=== PATIENT | female | born 1955 | race Two or more races ===

== ENCOUNTER 2018-01-23 19:42 | Inpatient (IN) | payer BC ==
[2018-01-23] MEDS ORDERED: HEPARIN SO1000 UNIT/ IV (23:30)
[2018-01-23] MEDS ORDERED: EPOGEN4000 U/ML SC (23:31)
[2018-01-24] VITALS: BP 250/87
[2018-01-24 00:35] LABS: BASOPHILS 0.4 % (0-2); EOSINOPHILS 0.9 % (0-7); HEMATOCRIT 25.2 % (36.0-48.0); HEMOGLOBIN 8.3 g/dL (12-16); IMMATURE GRANULOCYTES 0.2 % (0-5); LYMPHOCYTES 18.3 % (15-50); MCH 31.6 pg (26.0-34.0); MCHC 32.9 g/dL (31.0-37.0); MCV 95.8 fL (80.0-100.0); MEAN PLATELET VOLUME 10.7 fL (7.4-10.4); MONOCYTES 8.5 % (2-11); NEUTROPHILS 71.7 % (40-80); PLATELET COUNT 136 10x3/uL (130-400); RBC 2.63 10x6/uL (4.00-5.40); RDW 12.6 % (11.5-14.5); WBC 5.6 10x3/uL (4.8-10.8)
[2018-01-24 00:46] LABS: ALBUMIN 3.5 g/dL (3.4-5.0); ANION GAP 22.4 mmol/L (8-16); BILIRUBIN - TOTAL 0.4 mg/dL (0.2-1.3); CALCIUM 7.9 mg/dL (8.5-10.1); CARBON DIOXIDE 20.5 mmol/L (21.0-32.0); CREATININE - SERUM 11.5 mg/dL (0.6-1.3); PHOSPHOROUS 5.9 mg/dL (2.5-4.9); PROTEIN - SERUM 7.5 g/dL (6.4-8.2)
[2018-01-24 00:47] LABS: MAGNESIUM - SERUM 3.5 mg/dL (1.8-2.4)
[2018-01-24 00:48] LABS: POTASSIUM - SERUM 6.9 mmol/L (3.5-5.1)
[2018-01-24 04:00] VITALS: BP 199/74
[2018-01-24 06:10] LABS: BASOPHILS 0.2 % (0-2); EOSINOPHILS 1.3 % (0-7); HEMATOCRIT 26.6 % (36.0-48.0); IMMATURE GRANULOCYTES 0.2 % (0-5); LYMPHOCYTES 17.5 % (15-50); MCHC 33.8 g/dL (31.0-37.0); MCV 94.7 fL (80.0-100.0); MEAN PLATELET VOLUME 10.8 fL (7.4-10.4); MONOCYTES 7.4 % (2-11); NEUTROPHILS 73.4 % (40-80); PLATELET COUNT 156 10x3/uL (130-400); RBC 2.81 10x6/uL (4.00-5.40); RDW 12.5 % (11.5-14.5); WBC 4.8 10x3/uL (4.8-10.8)
[2018-01-24 06:24] LABS: ALBUMIN 3.8 g/dL (3.4-5.0); ANION GAP 21.2 mmol/L (8-16); BILIRUBIN - TOTAL 0.47 mg/dL (0.2-1.3); CALCIUM 8.5 mg/dL (8.5-10.1); CARBON DIOXIDE 22.3 mmol/L (21.0-32.0); MAGNESIUM - SERUM 2.8 mg/dL (1.8-2.4)
[2018-01-24 06:26] LABS: CREATININE - SERUM 5.7 mg/dL (0.6-1.3); PHOSPHOROUS 3.2 mg/dL (2.5-4.9); POTASSIUM - SERUM 3.5 mmol/L (3.5-5.1)
[2018-01-24 08:07] VITALS: BP 213/77
[2018-01-24 10:46] VITALS: BP 161/64
[2018-01-24 11:18] LABS: % SATURATION 107 % (15-55); IRON 207 ug/dl (35-150); TOTAL IRON BIND CAPACITY 193 ug/dl (260-445)
[2018-01-24 15:33] VITALS: BP 176/68
[2018-01-24 19:59] VITALS: BP 184/55
[2018-01-25] VITALS (8 sets, daily range): BP systolic 114–231; BP diastolic 45–76
[2018-01-25 05:50] LABS: BASOPHILS 0.4 % (0-2); EOSINOPHILS 1.5 % (0-7); HEMATOCRIT 26.3 % (36.0-48.0); HEMOGLOBIN 8.8 g/dL (12-16); LYMPHOCYTES 33.1 % (15-50); MCH 32.1 pg (26.0-34.0); MCHC 33.5 g/dL (31.0-37.0); MEAN PLATELET VOLUME 10.5 fL (7.4-10.4); MONOCYTES 10.8 % (2-11); NEUTROPHILS 54.2 % (40-80); PLATELET COUNT 147 10x3/uL (130-400); RBC 2.74 10x6/uL (4.00-5.40); RDW 12.7 % (11.5-14.5); WBC 4.7 10x3/uL (4.8-10.8)
[2018-01-25 06:19] LABS: ALBUMIN 3.4 g/dL (3.4-5.0); ANION GAP 22.6 mmol/L (8-16); BILIRUBIN - TOTAL 0.5 mg/dL (0.2-1.3); CALCIUM 8.1 mg/dL (8.5-10.1); CARBON DIOXIDE 20.8 mmol/L (21.0-32.0); PROTEIN - SERUM 7.4 g/dL (6.4-8.2)
[2018-01-25 06:20] LABS: CREATININE - SERUM 8.3 mg/dL (0.6-1.3); PHOSPHOROUS 5.7 mg/dL (2.5-4.9); POTASSIUM - SERUM 4.4 mmol/L (3.5-5.1)
[2018-01-25 08:22] LABS: FOLATE (FOLIC ACID) - SERUM 18.4 ng/mL (>3.0)
[2018-01-26 01:28] VITALS: BP 160/57
[2018-01-26 05:36] VITALS: BP 222/87
[2018-01-26 06:30] LABS: BASOPHILS 0.4 % (0-2); EOSINOPHILS 1.6 % (0-7); HEMATOCRIT 26.7 % (36.0-48.0); HEMOGLOBIN 8.9 g/dL (12-16); LYMPHOCYTES 27.5 % (15-50); MCHC 33.3 g/dL (31.0-37.0); MEAN PLATELET VOLUME 11.3 fL (7.4-10.4); MONOCYTES 14.1 % (2-11); NEUTROPHILS 56.4 % (40-80); PLATELET COUNT 158 10x3/uL (130-400); RBC 2.78 10x6/uL (4.00-5.40); RDW 12.5 % (11.5-14.5)
[2018-01-26 06:53] LABS: ALBUMIN 3.6 g/dL (3.4-5.0); ANION GAP 21.7 mmol/L (8-16); BILIRUBIN - TOTAL 0.41 mg/dL (0.2-1.3); CALCIUM 8.1 mg/dL (8.5-10.1); CARBON DIOXIDE 21.7 mmol/L (21.0-32.0); CREATININE - SERUM 9.9 mg/dL (0.6-1.3); MAGNESIUM - SERUM 3.1 mg/dL (1.8-2.4); POTASSIUM - SERUM 4.4 mmol/L (3.5-5.1); PROTEIN - SERUM 7.6 g/dL (6.4-8.2)
[2018-01-26 08:36] VITALS: BP 116/68
[2018-01-26 11:52] VITALS: BP 135/63
[2018-01-26 15:39] VITALS: BP 221/84
[2018-01-26 20:37] VITALS: BP 126/55
[2018-01-27 00:46] VITALS: BP 187/70
[2018-01-27 05:50] VITALS: BP 152/58
[2018-01-27 06:30] LABS: BASOPHILS 0.3 % (0-2); EOSINOPHILS 1.1 % (0-7); HEMATOCRIT 27.5 % (36.0-48.0); HEMOGLOBIN 9.2 g/dL (12-16); IMMATURE GRANULOCYTES 0.3 % (0-5); LYMPHOCYTES 22.1 % (15-50); MCH 32.5 pg (26.0-34.0); MCHC 33.5 g/dL (31.0-37.0); MCV 97.2 fL (80.0-100.0); MEAN PLATELET VOLUME 11.2 fL (7.4-10.4); MONOCYTES 15.3 % (2-11); NEUTROPHILS 60.9 % (40-80); PLATELET COUNT 149 10x3/uL (130-400); RBC 2.83 10x6/uL (4.00-5.40); RDW 12.5 % (11.5-14.5); WBC 3.8 10x3/uL (4.8-10.8)
[2018-01-27 07:07] LABS: ALBUMIN 3.5 g/dL (3.4-5.0); BILIRUBIN - TOTAL 0.4 mg/dL (0.2-1.3); CALCIUM 8.2 mg/dL (8.5-10.1); MAGNESIUM - SERUM 2.4 mg/dL (1.8-2.4); PHOSPHOROUS 4.8 mg/dL (2.5-4.9); PROTEIN - SERUM 7.7 g/dL (6.4-8.2)
[2018-01-27 07:10] LABS: CARBON DIOXIDE 27.7 mmol/L (21.0-32.0); CREATININE - SERUM 5.8 mg/dL (0.6-1.3); POTASSIUM - SERUM 3.7 mmol/L (3.5-5.1)
[2018-01-27 07:55] VITALS: BP 174/59
[2018-01-27 09:18] LABS: HEPATITIS C ANTIBODY <0.1 (0.0-0.9)
[2018-01-27 11:37] VITALS: BP 195/71
[2018-01-27 15:35] VITALS: BP 180/69
[2018-01-27 19:00] VITALS: BP 180/57
[2018-01-28] VITALS: BP 152/47
[2018-01-28 04:00] VITALS: BP 203/66
[2018-01-28 07:05] LABS: BASOPHILS 0.2 % (0-2); EOSINOPHILS 0.6 % (0-7); HEMATOCRIT 24.7 % (36.0-48.0); HEMOGLOBIN 8.2 g/dL (12-16); IMMATURE GRANULOCYTES 0.2 % (0-5); LYMPHOCYTES 22.2 % (15-50); MCH 32.3 pg (26.0-34.0); MCHC 33.2 g/dL (31.0-37.0); MCV 97.2 fL (80.0-100.0); MEAN PLATELET VOLUME 10.9 fL (7.4-10.4); MONOCYTES 9.6 % (2-11); NEUTROPHILS 67.2 % (40-80); PLATELET COUNT 130 10x3/uL (130-400); RBC 2.54 10x6/uL (4.00-5.40); RDW 12.8 % (11.5-14.5)
[2018-01-28 07:13] LABS: WBC 5.3 10x3/uL (4.8-10.8)
[2018-01-28 07:37] LABS: ALBUMIN 3.4 g/dL (3.4-5.0); ANION GAP 17.3 mmol/L (8-16); BILIRUBIN - TOTAL 0.38 mg/dL (0.2-1.3); CALCIUM 7.5 mg/dL (8.5-10.1); CARBON DIOXIDE 25.3 mmol/L (21.0-32.0); MAGNESIUM - SERUM 2.5 mg/dL (1.8-2.4); POTASSIUM - SERUM 3.6 mmol/L (3.5-5.1); PROTEIN - SERUM 7.3 g/dL (6.4-8.2)
[2018-01-28 07:41] LABS: PHOSPHOROUS 6.3 mg/dL (2.5-4.9)
[2018-01-28 07:42] LABS: CREATININE - SERUM 7.8 mg/dL (0.6-1.3)
[2018-01-28 08:52] VITALS: BP 192/69
[2018-01-28 16:21] VITALS: BP 199/83
[2018-03-02] MEDS ORDERED: HYDRALAZINE HCL10 MG PO (15:23)
[2018-03-02] MEDS ORDERED: FOLATE0.4 MG PO (15:24)
[2018-03-02] MEDS ORDERED: FUROSEMIDE40 MG PO (15:24)
[2018-03-02] MEDS ORDERED: SENNA8.6 MG PO (15:26)
[2018-03-02] MEDS ORDERED: VITAMIN B COMPL1 TAB PO (15:26)
[2018-03-02] MEDS ORDERED: COZAAR50 MG PO (15:26)
[2018-03-02] MEDS ORDERED: OMEPRAZOLE40 MG PO (15:26)
== END 2018-01-28 17:01 | disposition home or self-care (01) | DRG 682 ==
LOC: D.M2 19:42
PROVIDERS: Family Medicine; Internal Medicine Nephrology
PROC: 5A1D70Z Performance of Urinary Filtration, Intermittent, Less than 6 Hours Per Day (ICD-10-PCS; principal; 2018-01-26)
DX: I12.0 Hypertensive chronic kidney disease with stage 5 chronic kidney disease or end stage renal disease (principal); N18.6 End stage renal disease; E11.22 Type 2 diabetes mellitus with diabetic chronic kidney disease; Z99.2 Dependence on renal dialysis; Z89.612 Acquired absence of left leg above knee; D63.1 Anemia in chronic kidney disease

== ENCOUNTER 2018-03-03 06:17 | Observation (INO) | payer BC ==
[2018-03-02 16:13] LABS: BASOPHILS 0.2 % (0-2); EOSINOPHILS 1.6 % (0-7); HEMATOCRIT 32.9 % (36.0-48.0); IMMATURE GRANULOCYTES 0.2 % (0-5); LYMPHOCYTES 22.3 % (15-50); MCH 32.2 pg (26.0-34.0); MCHC 33.4 g/dL (31.0-37.0); MCV 96.2 fL (80.0-100.0); MEAN PLATELET VOLUME 10.4 fL (7.4-10.4); MONOCYTES 8.2 % (2-11); NEUTROPHILS 67.5 % (40-80); RBC 3.42 10x6/uL (4.00-5.40); RDW 13.1 % (11.5-14.5); WBC 5.6 10x3/uL (4.8-10.8)
[2018-03-02 16:15] LABS: PLATELET COUNT 160 10x3/uL (130-400)
[2018-03-02 16:33] LABS: ANION GAP 14.2 mmol/L (8-16); CALCIUM 9.3 mg/dL (8.5-10.1); CARBON DIOXIDE 30.7 mmol/L (21.0-32.0); CREATININE - SERUM 2.6 mg/dL (0.6-1.3); POTASSIUM - SERUM 3.9 mmol/L (3.5-5.1)
[2018-03-02 16:35] LABS: INR 1.08 (0.85-1.17); PROTIME 13.6 SECONDS (11.6-15.0)
[2018-03-02 16:36] LABS: APTT 34.4 SECONDS (22.8-39.4)
[~2018-03-03] VITALS: Ht 142.2 cm; Wt 59.0 kg
--- NOTE | ~2018-03-03 | OP ---
PATIENT NAME: RAYMUNDO CHAO MEDICAL RECORD: [id number] :51 LOCATION:D.FORMERLY [facility] [place] ADMISSION DATE: SURGEON: SOY HALL MD DATE OF OPERATION: 03/03/2018 PREOPERATIVE DIAGNOSIS: End-stage renal disease without peripheral access for hemodialysis. POSTOPERATIVE DIAGNOSIS: End-stage renal disease without peripheral access for hemodialysis. PROCEDURE: Placement of left arm looped AV graft fistula, 4 mm to 7 mm. SURGEON: Soy Hall MD ADULT BASIC STUDIES TEACHER: None. BLOOD LOSS: 100 cc. ANESTHESIA: General. COMPLICATIONS: None. The risks, possible complications and alternatives to the procedure were explained through a international freight forwarder. She elected to proceed. OPERATIVE COURSE: The patient was conveyed to the operating room electively on 03/03/2018. General anesthesia was induced by the anesthesia staff. The left upper extremity was sterilely prepped and draped in abducted at 90 degrees to the patient's trunk. I interrogated the left upper extremity with the handheld ultrasound. Superficial veins were too small for a primary arteriovenous fistula. An axial incision was accomplished on the medial aspect of the left arm. I dissected down to the basilic vein, which was encircled with vessel loops. I dissected down to the brachial artery, which was encircled with vessel loops. Two counterincisions were accomplished on the lateral aspect of the left arm. I then created a subcutaneous tunnel. I tunneled the graft from the main incision through the 2 minor incisions and then back to the main incision. Intravenous heparin was given. I ensured that there was no twisting or kinking of the graft during the tunneling process. I cut the 4 mm end of the graft. An axial arteriotomy was accomplished. I punched out some ovals in the artery with an aortic punch. A side-to-end arterial to graft anastomosis was then accomplished with a running 6-0 Prolene. I flushed out through the graft. Attention was then turned to the venous anastomosis. I beveled the graft. An axial venotomy was accomplished. An end-to-side graft to venous anastomosis was then fashioned with a running 6-0 Prolene. I then flushed out through the graft. There was Doppler signal in the brachial artery proximal and distal to the graft. Doppler signal could be heard at the left radial artery as well as left ulnar artery. There was an excellent thrill within the graft. Additional hemostasis was achieved with Ana M. The 2 lateral incisions were closed with interrupted intracuticular 3-0 Vicryls as well as Dermabond. The main incision on the medial aspect of the arm was closed with multiple OPERATIVE REPORT [id number] RAYMUNDO CHAO interrupted 3-0 Vicryl sutures for the subcutaneous tissue and then a cutaneous closure with an intracuticular 4-0 Vicryl. Sterile dressings were applied. The patient was then extubated and conveyed to the post-anesthesia care unit where she was in stable condition. She can be dismissed home on [place] for pain. I will see her on a p.r.n. basis. She does not need to follow up with me unless she develops a complication related to this operative procedure. She had a good hand remedial project manager in the recovery room. She had an O2 saturation in the left upper extremity of 97%. TRANSINT:[id number] Voice Confirmation ID: [id number] DOCUMENT ID: [id number] SOY HALL MD CC: JHONATHAN CROWELL [id number] DICTATION DATE: 03/03/18 1214 VAMP CUT OUT WORKER: 03/03/18 1311 [facility] [address] [place] [address]
[~2018-03-03 06:17] MED LIST: COZAAR50 MG PO; EPOGEN4000 U/ML SC; FOLATE0.4 MG PO; FUROSEMIDE40 MG PO; HEPARIN SO1000 UNIT/ IV; HYDRALAZINE HCL10 MG PO; OMEPRAZOLE40 MG PO; SENNA8.6 MG PO; VITAMIN B COMPL1 TAB PO
[2018-03-03] MEDS ORDERED: NIFEDIPINE ER30 MG PO (07:22)
[2018-03-03 07:27] VITALS: BMI 29.2
[2018-03-03 14:27] VITALS: Ht 142.2 cm; Wt 59.0 kg
[2018-03-03 20:22] VITALS: BP 135/55
[2018-03-04 01:50] VITALS: BP 152/68
[2018-03-04 05:25] VITALS: BP 118/52
[2018-03-04 07:34] LABS: BASOPHILS 0.3 % (0-2); EOSINOPHILS 0.5 % (0-7); HEMATOCRIT 29.6 % (36.0-48.0); HEMOGLOBIN 9.4 g/dL (12-16); IMMATURE GRANULOCYTES 0.1 % (0-5); LYMPHOCYTES 24.7 % (15-50); MCH 31.4 pg (26.0-34.0); MCHC 31.8 g/dL (31.0-37.0); MEAN PLATELET VOLUME 10.7 fL (7.4-10.4); MONOCYTES 9.6 % (2-11); NEUTROPHILS 64.8 % (40-80); PLATELET COUNT 181 10x3/uL (130-400); RBC 2.99 10x6/uL (4.00-5.40); RDW 13.8 % (11.5-14.5)
[2018-03-04 07:44] LABS: WBC 7.6 10x3/uL (4.8-10.8)
[2018-03-04 07:49] LABS: ANION GAP 16.8 mmol/L (8-16); CALCIUM 8.9 mg/dL (8.5-10.1); CARBON DIOXIDE 25.9 mmol/L (21.0-32.0); CREATININE - SERUM 5.6 mg/dL (0.6-1.3); PHOSPHOROUS 5.2 mg/dL (2.5-4.9); POTASSIUM - SERUM 4.7 mmol/L (3.5-5.1)
[2018-03-04 08:35] VITALS: BP 126/54
[2018-03-04 12:00] VITALS: BP 152/59
[2018-03-04 17:02] VITALS: BP 138/58
[2018-03-04 20:50] VITALS: BP 130/57
[2018-03-05 01:31] VITALS: BP 108/33
[2018-03-05 05:41] VITALS: BP 115/46
[2018-03-05 06:18] LABS: BASOPHILS 0.1 % (0-2); EOSINOPHILS 0.9 % (0-7); HEMATOCRIT 26.9 % (36.0-48.0); HEMOGLOBIN 7.8 g/dL (12-16); LYMPHOCYTES 14.8 % (15-50); MCH 29.2 pg (26.0-34.0); MCV 100.7 fL (80.0-100.0); MEAN PLATELET VOLUME 10.7 fL (7.4-10.4); MONOCYTES 12.6 % (2-11); NEUTROPHILS 71.6 % (40-80); PLATELET COUNT 158 10x3/uL (130-400); RBC 2.67 10x6/uL (4.00-5.40); RDW 14.1 % (11.5-14.5); WBC 7.7 10x3/uL (4.8-10.8)
[2018-03-05 08:00] LABS: ANION GAP 20.6 mmol/L (8-16); CARBON DIOXIDE 20.5 mmol/L (21.0-32.0); CREATININE - SERUM 4.2 mg/dL (0.6-1.3); PHOSPHOROUS 4.4 mg/dL (2.5-4.9); POTASSIUM - SERUM 4.1 mmol/L (3.5-5.1)
[2018-03-05 09:09] VITALS: BP 142/53
== END 2018-03-05 15:40 | disposition home or self-care (01) ==
LOC: D.OPS 06:17 → D.M2 17:30 → D.OPS 18:00 → D.M2 18:01 → OBSVTIME 18:01 → D.M2 18:01
PROVIDERS: Anesthesiology; Internal Medicine Nephrology
DX: I12.0 Hypertensive chronic kidney disease with stage 5 chronic kidney disease or end stage renal disease (principal); E11.22 Type 2 diabetes mellitus with diabetic chronic kidney disease; E11.65 Type 2 diabetes mellitus with hyperglycemia; N18.6 End stage renal disease; D63.1 Anemia in chronic kidney disease

== ENCOUNTER 2018-04-26 07:51 | Day surgery (SDC) | payer MEDICARE, BC ==
[~2018-04-26] VITALS: Ht 142.2 cm; Wt 59.0 kg
--- NOTE | ~2018-04-26 | OP ---
PATIENT NAME: RAYMUNDO KLEIN MEDICAL RECORD: [id number] :51 LOCATION:D.[facility] ADMISSION DATE: SURGEON: SOY HALL MD DATE OF OPERATION: 04/26/2018 PREOPERATIVE DIAGNOSIS: Postoperative wound necrosis, left upper extremity. POSTOPERATIVE DIAGNOSIS: Postoperative wound necrosis, left upper extremity. Please see dimensions below. PROCEDURE: Excisional debridement of wound necrosis, incisional. Dimensions of the debridement, including margins, measures 6.8 cm in the axial dimension as well as 3.4 cm in the cephalad-caudad dimension and is undermined proximally to 2.0 cm. The depth of the wound is 1.9 cm. The wound included serous fluid as well as a lymphocele. A wound VAC was placed. The risks, possible complications, and alternatives to procedure were explained to the patient. She elects to proceed. An court interpreter was utilized. OPERATIVE COURSE: The patient was conveyed to the operating room electively on 04/26/2018. General anesthesia was induced by the anesthesia staff. The left upper extremity was abducted at 90 degrees to the patient's trunk. The left lateral chest, left axilla, and left upper extremity were sterilely prepped and draped. Through the use of double curvilinear incisions, I sharply excised the skin and subcutaneous tissue around the necrotic strip of material. I identified no purulence. Cultures were obtained. A solid lymphocele type of material was noted and was removed in a piecemeal fashion. I irrigated with hydrogen peroxide. The tissues debrided include skin and subcutaneous tissue as well as necrotic eschar, necrotic exudate. This was a sharp debridement with a scalpel. Meticulous hemostasis was achieved with electrocautery. A black wound VAC sponge was cut to the size of the defect. The cellophane-type dressings were applied over the wound VAC sponge and this was scored. I then bridged the wound VAC on to the left anterior arm and applied the wound VAC disc for suction. The patient was then extubated and conveyed to post-anesthesia care unit, where she was in stable condition. She is going to be dismissed home with a wound VAC, which will need to be changed 3 times weekly. I will see her in the office in 4 weeks. TRANSINT:[id number] Voice Confirmation ID: [id number] DOCUMENT ID: [id number] SOY HALL MD at 1717 CC: JHONATHAN CROWELL [id number] DICTATION DATE: 04/26/18 1240 TWIST TESTER: 04/26/18 1354 [facility] [place] 04/26/18 [place] [id number] [place] [address]
[~2018-04-26 07:51] MED LIST changes: +NIFEDIPINE ER30 MG PO
[2018-04-26 08:28] LABS: HEMOGLOBIN 13.1 g/dL (12-16); MCH 30.1 pg (26.0-34.0); MCV 94.3 fL (80.0-100.0); MEAN PLATELET VOLUME 9.8 fL (7.4-10.4); RBC 4.35 10x6/uL (4.00-5.40); RDW 15.5 % (11.5-14.5); WBC 5.9 10x3/uL (4.8-10.8)
[2018-04-26 09:20] LABS: ANION GAP 15.4 mmol/L (8-16); CALCIUM 8.6 mg/dL (8.5-10.1); CARBON DIOXIDE 27.8 mmol/L (21.0-32.0); CREATININE - SERUM 4.5 mg/dL (0.6-1.3); POTASSIUM - SERUM 4.2 mmol/L (3.5-5.1)
[2018-04-26 09:58] VITALS: Ht 142.2 cm; Wt 59.0 kg
== END 2018-04-26 17:15 | disposition home or self-care (01) ==
LOC: D.OPS 07:51
PROVIDERS: Anesthesiology
DX: L76.82 Other postprocedural complications of skin and subcutaneous tissue (principal); I96 Gangrene, not elsewhere classified; Y83.8 Other surgical procedures as the cause of abnormal reaction of the patient, or of later complication, without mention of misadventure at the time of the procedure; E11.9 Type 2 diabetes mellitus without complications; I10 Essential (primary) hypertension

== ENCOUNTER 2018-07-03 09:39 | Day surgery (SDC) | payer MEDICARE ==
[~2018-07-03] VITALS: Ht 142.2 cm; Wt 38.6 kg
--- NOTE | ~2018-07-03 | OP ---
PATIENT NAME: RAYMUNDO KLEIN MEDICAL RECORD: [id number] :51 LOCATION:D.[facility] ADMISSION DATE: SURGEON: CHOCO HALL MD DATE OF OPERATION: 07/03/2018 PREOPERATIVE DIAGNOSIS: Postoperative exudate, left upper extremity. POSTOPERATIVE DIAGNOSES: Postoperative exudate, left upper extremity with developing pyogenic granuloma. PROCEDURE: Excisional debridement of left arm with temporary closure. SURGEON: Choco Hall MD NATIONAL ACCOUNT EXECUTIVE: None. BLOOD LOSS: Minimal. ANESTHESIA: General. COMPLICATIONS: None. The risks, possible complications and alternatives to the procedure were explained to the patient. She elects to proceed. I excised back to healthy bleeding granulation tissue. The dimensions of the debridement, including margins, measured 3.0 cm x 2.5 cm included exudate as well as some granulation tissue. OPERATIVE COURSE: The patient was conveyed to the operating room electively on 07/03/2018. General anesthesia was induced by the anesthesia staff. The patient's left upper extremity was abducted at 90 degrees to the patient's trunk. The left upper extremity was sterilely prepped and draped. Utilizing a scalpel as well as curettes, I removed the exudate. There was some exposed graft after doing this. The patient was developing a pyogenic granuloma. I cauterized back some of the exuberant granulation tissue. I irrigated with hydrogen peroxide. It was going to be difficult to undermine the skin and close it due to the very superficial nature of the graft. Instead what I did is, I took some of the surrounding skin and subcutaneous tissue and closed it in a horizontal mattress fashion with some 2-0 Vicryls. I then stuffed some fibrillar underneath this closure. A sterile dressing was applied. The patient was then extubated and conveyed to the post-anesthesia care unit where she was in stable condition. We are going to ask home health care to discontinue the saline wet-to-dry dressings and just to apply a daily dry dressing. I will see the patient back in my office in 3-4 weeks. TRANSINT:[id number] Voice Confirmation ID: [id number] DOCUMENT ID: [id number] OPERATIVE REPORT [id number] RAYMUNDO KLEIN CHOCO HALL MD at 1321 CC: JHONATHAN CROWELL [phone] DICTATION DATE: 07/06/18 1129 GLIDING PILOT INSTRUCTOR: 07/06/18 1137 [facility] 07/03/18 [place] [id number] [place] [id number]
[2018-07-03 10:12] LABS: BASOPHILS 0.1 % (0-2); EOSINOPHILS 1.1 % (0-7); HEMATOCRIT 31.1 % (36.0-48.0); HEMOGLOBIN 10.2 g/dL (12-16); IMMATURE GRANULOCYTES 0.1 % (0-5); LYMPHOCYTES 17.1 % (15-50); MCH 29.8 pg (26.0-34.0); MCHC 32.8 g/dL (31.0-37.0); MCV 90.9 fL (80.0-100.0); MEAN PLATELET VOLUME 10.1 fL (7.4-10.4); MONOCYTES 8.6 % (2-11); RBC 3.42 10x6/uL (4.00-5.40); RDW 15.1 % (11.5-14.5); WBC 8.8 10x3/uL (4.8-10.8)
[2018-07-03 10:19] LABS: PLATELET COUNT 155 10x3/uL (130-400)
[2018-07-03 10:20] LABS: ANION GAP 14.4 mmol/L (8-16); CALCIUM 8.6 mg/dL (8.5-10.1); CARBON DIOXIDE 23.8 mmol/L (21.0-32.0); CREATININE - SERUM 5.8 mg/dL (0.6-1.3); POTASSIUM - SERUM 4.2 mmol/L (3.5-5.1)
[2018-07-03 10:37] LABS: APTT 33.9 SECONDS (22.8-39.4); INR 1.07 (0.85-1.17); PROTIME 13.5 SECONDS (11.6-15.0)
[2018-07-03] MEDS ORDERED: KEFLEX500 MG PO (10:50)
[2018-07-03] MEDS ORDERED: PRINIVIL20 MG (10:50)
[2018-07-03] MEDS ORDERED: TENORMIN100 MG PO (10:50)
[2018-07-03] MEDS ORDERED: GABAPENTIN100 MG PO (10:51)
[2018-07-03 10:57] VITALS: Ht 142.2 cm; Wt 38.6 kg
== END 2018-07-03 15:15 | disposition home or self-care (01) ==
LOC: D.OPS 09:39
PROVIDERS: Anesthesiology
DX: T81.89XA Other complications of procedures, not elsewhere classified, initial encounter (principal); L98.0 Pyogenic granuloma; Z01.812 Encounter for preprocedural laboratory examination